=== PATIENT | female | born 2000 | race Caucasian/White ===

== ENCOUNTER 2023-11-18 21:59 | Emergency (ER) | payer SELFPAY ==
[2023-11-18 22:02] VITALS: BP 127/87; PULSE 118; RESP 18; TEMP 36.8; O2SAT 94; BMI 25.8
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
[2023-11-18 22:16] LABS: Basophils # 0.1 10^3/uL (0.0-0.1); Basophils % 0.4 %; Eosinophils # 0.2 10^3/uL (0.0-0.8); Eosinophils % 0.8 %; Hematocrit 43.5 % (36-47); Lymphocytes # 8.3 10^3/uL (0.8-4.8); Lymphocytes % 33.1 %; Mean Corpuscular HGB Conc 32.4 g/dL (30-55); Mean Corpuscular Hemoglobin 28.7 pg (27-33); Mean Corpuscular Volume 88.4 fl (85-98); Mean Platelet Volume 11.2 fL (7.4-10.4); Monocytes # 1.6 10^3/uL (0.2-0.9); Monocytes % 6.5 %; Neutrophils # 14.38 10^3/uL (1.8-7.7); Neutrophils % 57.1 %; Nucleated Red Blood Cells % 0 %; Platelet Count 378 10^3/cmm (157-399); Red Blood Count 4.92 10^6/uL (3.85-5.65); Red Cell Distribution Width 13.5 % (12.1-15.1); White Blood Count 25.19 10^3/uL (3.29-11.43)
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
[2023-11-18] MEDS: ondansetron 2 mg/ML SDV 2 mL 4 MG IVP (22:26)
[2023-11-18] MEDS: sodium chloride 0.9% 1,000 ML 999 ML IV (22:26)
[2023-11-18] MEDS: HYDROmorphone 1 mg/mL INJ 1 mL IVP ×2 (22:26→23:45)
[2023-11-18 22:37] LABS: Alcohol Level 12 mg/dL (0-10); Blood Urea Nitrogen 18 mg/dL (6-20); Carbon Dioxide 21 mmol/L (22-29); Chloride 100 mmol/L (98-107); Creatinine Clr Calc Pharmacy 98.3109; Glomerular Filtration Rate 76.9 mL/min (90-130); Glucose 103 mg/dL (65-115); Osmolality Calculated 290 mOsm/kg (285-295); Sodium 139 mmol/L (136-145)
[2023-11-18 22:56] LABS: HCG, Serum Qual Negative (Negative)
[2023-11-18] MEDS: iohexol 350 mg/mL 500 mL Btl (per mL) IV (22:58)
[2023-11-18 23:33] VITALS: BP 140/87; PULSE 122; RESP 18; O2SAT 98
[2023-11-18 23:45] VITALS: BP 140/87; PULSE 106; RESP 20; RESP 23; O2SAT 98; O2SAT 99
[2023-11-19] MEDS: ondansetron 2 mg/ML SDV 2 mL 4 MG IVP (01:20)
[2023-11-19 01:24] VITALS: BP 127/67; PULSE 100; RESP 19; O2SAT 96
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
--- NOTE | 2023-11-19 14:21 | PC.NURSE ---
THIS NURSE ENTERED THE CHART TO HELP ANCHOR OPERATOR IN REGARDS TO INFORMATION ON PATIENT.
== END 2023-11-19 02:11 | disposition short-term general hospital (02) ==
PROVIDERS: Emergency Provider Emergency Medicine
DX: Z04.1 Encounter for examination and observation following transport accident (principal); V89.2XXA Person injured in unspecified motor-vehicle accident, traffic, initial encounter
CPT/HCPCS: 36415; 70450; 70486; 71260; 72125; 74177; 80048; 80307; 84703; 85025; 86850; 86900; 96361; 96374; 96375; 96376; 99285; J1170; J2405; J7030; Q9967